=== PATIENT | male | born 1940 | race Caucasian/White ===

== ENCOUNTER 2016-12-20 20:12 | Emergency (ER) | payer MEDICARE ==
[~2016-12-20] VITALS: Ht 185.4 cm; Wt 138.2 kg
[~2016-12-20 20:12] MED LIST: ASPI-973 PO; CLOP75TA28 PO; FLUO10CA20 PO; FLUO20CA25 PO; FURO40TA4 PO; LISI-610 PO; METO100T3 PO; NITR0.4T6 SL; NORT10CA PO; PANT40TA3 PO; POTA20TA16 PO; SIMV40TA5 PO; SPIR25TA PO; SUCR1TAB30 PO
[2016-12-20 20:18] VITALS: BP 171/140; PULSE 93; RESP 23; O2SAT 96
--- NOTE | 2016-12-20 20:32 | ED.REPORT ---
HPI-Chest Pain 40 and Over Date of Service Dec 20, 2016 ED Provider: Oli Alexander DO The patient is a 76 year old male with a medical history including CAD, atrial fibrillation, hypertension, GI bleed, peripheral vascular disease, and CHF s/p cardiac stenting who presents to the ED via EMS with intermittent left-sided chest pain onset five days ago, worsening 45 minutes prior to arrival. 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 The patient denies nausea, shortness of breath, or other symptoms. EMS found the patient with a BP of 171/140 and otherwise normal vital signs. He was given 324mg ASA en route. The patient was supposed to have a lower extremity vascular surgery multiple months ago but cancelled this. Nursing Notes Stated Complaint: CHEST PAIN Chief Complaint: Chest Pain Nursing Notes Reviewed: Yes Allergies: Coded Allergies: morphine (Verified Allergy, Unknown, Hallucinations, 04/25/16) Scheduled Aspirin (Aspirin) 81 Mg Tablet 81 MG PO BID Clopidogrel (Clopidogrel) 75 Mg Tablet 75 MG PO HS Fluoxetine (Fluoxetine) 10 Mg Capsule 10 MG PO DAILY take with 20mg capsule to equal total dose 30mg Fluoxetine (Fluoxetine) 20 Mg Capsule 20 MG PO DAILY take with 10mg capsule to equal 30mg total dose Furosemide (Furosemide) 40 Mg Tablet 40 MG PO BID Lisinopril (Zestril) 10 Mg Tablet 10 MG PO DAILY Metoprolol Tartrate (Metoprolol Tartrate) 100 Mg Tablet 100 MG PO BID Nortriptyline (Nortriptyline) 10 Mg Capsule 10 MG PO HS Pantoprazole DR (Pantoprazole DR) 40 Mg Tablet.dr 40 MG PO BID Potassium Chloride (Potassium Chloride) 20 Meq Tab.er.prt 40 MEQ PO DAILYWM Simvastatin (Simvastatin) 40 Mg Tablet 40 MG PO HS Spironolactone (Aldactone) 25 Mg Tablet 12.5 MG PO DAILY Sucralfate (Carafate) 1 Gm Tablet 1,000 MG PO ACHS Scheduled PRN Nitroglycerin SL (Nitroglycerin SL) 0.4 Mg Tab.subl 0.4 MG SL prn PRN PRN For Chest Pain 1 TAB UNDER TONGUE FOR CHEST PAIN, MAY REPEAT EVERY 5 MINUTES UP TO 3 TABS, IF CHEST PAIN UNRELIEVED CALL 911 General Time Seen by MD: 20:20 Chief Complaint Chest pain Hx Obtained From: Patient Arrived By: Ambulance Sudden in Onset?: Yes Onset Occurred: 5 days ago Symptom Duration: Intermittent Location: : Chest left Quality: Dull, Painful, Sharp, Stabbing Severity: Current: Moderate Severity: Maximum: Moderate Pertinent Negative: Relieved by nothing Context Related History: Reports: Acute coronary syndrome, Arrhythmia, Congestive heart failure, Hypertension Recent Healthcare: No recent doctor visit Past Medical History Past Medical History Coronary artery disease. Atrial fibrillation with rapid ventricular rate. Labile hypertension. Hyperlipidemia. Morbid obesity. Chronic back pain - spinal stenosis. History of prostate cancer s/p brachytherapy Gouty arthritis. Impaired glucose tolerance. Hx of GI bleed CHF Past Surgical History Back surgery Prostate surgery Lumbar spinal fusion, unsure what level. Angioplasty to the right coronary artery with two drug-eluting stents, 3 x 18 mm Xience stent in the distal right coronary artery and a 4 x 18 mm stent in the mid right coronary artery. Family History -Mother: of throat cancer and COPD at 65 -Father: of bladder cancer at 54 -Brother: of heart failure at 65 Smoking History Never Smoker Social History Alcohol Use: In recovery Drug Use: Denies drug use Other Social History: Good social support, , Local resident Ambulatory Status Walker Review of Systems Review of Systems Note: + Pallor, right foot injury Constitutional: Denies: Fever Respiratory: Denies: Non-productive cough, Shortness of breath Cardiovascular: Reports: Chest pain GI: Denies: Diarrhea, Vomiting Complete sys rev & neg: except as marked. Ears / Nose / Throat: Reports: Hearing loss right Physical Exam Initial Vital Signs Vital Signs (First) Date Time Temp Pulse Resp B/P Pulse Ox O2 Delivery O2 Flow Rate FiO2 12/20/16 20:18 36.6 93 23 171/140 96 Room Air Initial VS: Reviewed Head / Eyes: Atraumatic, Normocephalic Neck: Supple, Full range of motion Skin: Warm, Dry, No cyanosis Neurologic: Alert, Oriented, Nonfocal Psychiatric: Mood/affect normal, Behavior normal, Normal thought content General/Constitutional: Awake, Alert Respiratory / Chest: Breath sounds = bilat, No respiratory distress, No chest tenderness Rales / Rhonchi: Positive: Rales bilateral bases Cardiovascular: Regular rhythm, Heart sounds NL Heart Rate / Rhythm: Positive: Irreg irregular rhythm Abdomen: Soft, Non-tender ENT: Airway patent, Mucous membranes moist Right Ear / Mastoid: Positive: Tympanic memb perforated Left Ear / Mastoid: Positive: Ext canal cerumen impact Ankle / Foot: No deformity Ulceration over base of right fifth metatarsal. Large superficial skin avulsion spanning right first digit tip to first metatarsal head which has good granulation tissue without evidence of streaking, drainage, fluctuance, or erythema. Interpretation & Diagnostics Lab Results Interpretation Result Diagram: 12/20/16204912/20/162049 Test 12/20/16 20:50 12/20/16 23:20 White Blood Count 8.8th/mm3 (3.8-10.1) Red Blood Count 5.60mil/mm3 (4.40-5.80) Hemoglobin 14.9g/dL (13.8-17.2) Hematocrit 46.8% (41.0-50.0) Mean Corpuscular Volume 83.6fL (81-100) Mean Corpuscular Hemoglobin 26.6pg (27.0-35.0) Mean Corpuscular Hemoglobin Concent 31.8% (32.0-37.0) Red Cell Distribution Width 21.1% (12.3-15.4) Platelet Count 247bil/L (150-400) Neutrophils (%) (Auto) 63.1% (40-74) Lymphocytes (%) (Auto) 20.9% (14-46) Monocytes (%) (Auto) 12.9% (4-12) Eosinophils (%) (Auto) 2.3% (0-5) Basophils (%) (Auto) 0.6% (0-3) Prothrombin Time 11.0sec (8.1-12.5) Prothromb Time International Ratio 1.03ratio Sodium Level 136mEq/L (134-144) Potassium Level 4.3mEq/L (3.5-5.2) Chloride Level 97mEq/L (97-108) Carbon Dioxide Level 24mmol/L (18-29) Blood Urea Nitrogen 11mg/dL (8-27) Creatinine 0.91mg/dL (0.76-1.27) Estimat Glomerular Filtration Rate 86mL/min (>59) Glucose Level 143mg/dL (60-99) Calcium Level 9.1mg/dL (8.5-10.1) Magnesium Level 1.9mg/dL (1.6-2.6) Total Bilirubin 0.7mg/dL (0.0-1.2) Aspartate Amino Transf (AST/SGOT) 37U/L (0-50) Alanine Aminotransferase (ALT/SGPT) 17U/L (0-44) Alkaline Phosphatase 104U/L (25-160) Total Protein 7.1g/dL (6.4-8.4) Albumin 3.5g/dL (3.4-5.0) Hold Knutson Top Tube Received (Received) Troponin T 0.010ug/L (0.0-0.011) ECG Interpretation ECG Interpretation: Atrial fibrillation rate 94 RBBB Rate increased from previous dated 04/25/16 Inverted T-waves in lead III, unchanged from previous Time: 20:23 Interpreted by: ED physician X-Ray Chest Interpretation Chest Xray Interpretation: IMPRESSION: Acute disease is not seen in the portable chest. Dictated by: Festus Magana M.D. on 12/20/2016 at 20:33 View: Portable, 1 view Interpretation / Wet Read by: Interpret - Radiologist Re-Eval/Medical Decision Med Decision/Clinical Course 76-year-old male with multiple medical comorbidities including chronic atrial fibrillation not on Coumadin, CHF, peripheral vascular disease, coronary artery disease status post stenting on Plavix, and poor medical compliance presents with intermittent chest pain at rest that started around 6 PM this evening. He has no accompanying shortness of breath, diaphoresis, pain in his jaw or his hand. Patient states he was hospitalized earlier this year for 60 days and does not want to be back in the hospital. He has his discharge paperwork from several months ago present with him as well as the prescriptions that he was sent home with at that time which she has not filled. He does not have a clear understanding of which medications he is taking and neither does his . Approximately one week ago the patient was mowing his lawn and got his foot cut by the lawnmower blade. His is been soaking in hydrogen peroxide and putting antibiotic ointment on it, but they have not seen for this. He does not have any fevers or chills, he does not have any streaking up his leg. The wound appears clean and there are no signs of secondary infection, however it is relatively large and he does have a history of peripheral vascular disease. I advised that they need to use wet to dry dressing changes and showed them how to do this. I also gave them a referral to the wound care center which I believe he would greatly benefit from. He is also concerned about decreased hearing in his right ear as his cleaned out his ear wax and since then he has had decreased hearing. She is concerned she may have perforated eardrum, and on exam this is confirmed. I advised them to follow up with her PCP and that this may take several months to heal. In the ER we ruled out acute coronary syndrome with serial troponins and EKG showing atrial fibrillation and T-wave inversion in lead III which is unchanged from previous. I do feel strongly that he needs a cardiac stress test to definitively evaluate his heart I advised him to continue his current medications and follow up early next week with Dr. King. I consider hospitalization given his poor medical compliance to try to get him on the right track and evaluate his heart further inpatient but the patient refused, expressing a strong desire not to be in the hospital again. I discussed the importance of following up with his primary care provider and caring for his current medical problems. Patient and his are agreeable. They will return if his symptoms worsen or if he develops new symptoms. Source of Hx: Old records Time of Eval: 22:57 Patient Status: Condition improved Re-Evaluation/Progress Note: Discussed with patient lab and ECG results with plan for repeat labs. He agrees with plan for care and all questions were addressed. Time of Eval: 00:13 Patient Status: Condition improved Re-Evaluation/Progress Note: Discussed with patient x-ray and lab results, diagnosis, and plan for discharge. Follow-up and return to the ER instructions given. Patient agrees with plan for care and all questions were addressed. Counseled Regarding: Diagnosis, Lab results, Need for follow-up, When/why to return to ED Discharge & Departure Primary Impression: Chest pain Chest pain type: unspecified Qualified Code: R07.9 - Chest pain, unspecified Additional Impressions: Open wound of right foot Encounter type: initial encounter Qualified Code: S91.301A - Unspecified open wound, right foot, initial encounter Peripheral vascular disease Atrial fibrillation Atrial fibrillation type: chronic Qualified Code: I48.2 - Chronic atrial fibrillation Hypertension Hypertension type: essential hypertension Qualified Code: I10 - Essential ( primary) hypertension Tympanic membrane perforation Laterality: right Qualified Code: H72.91 - Unspecified perforation of tympanic membrane, right ear Ruled Out: Acute coronary syndrome Disposition: Home Discharge Condition All VS Reviewed: Yes Condition: Improved Patient Instructions: Chest Pain (ED) Additional Instructions: Thank you for entrusting us with your care. We did not see any evidence of heart attack based off of your EKG and blood work. You do however need to have a stress test to completely rule out heart problems leading to chest pain. Call your primary care provider on Thursday for a follow-up appointment. Speak with him about having a stress test. Also call the wound clinic to follow-up with your foot wound. Until then, apply wet to dry dressings as we demonstrated here. I do not see any evidence of infection based off of the exam today. Stop applying hydrogen peroxide to the wound as this will slow healing. Your right tympanic membrane is perforated. It may heal on its own, he should have this rechecked by your primary care provider. Please continue your home blood pressure medications as prescribed. You should also discuss potentially taking a blood thinner due to your vascular disease and your atrial fibrillation. Return to the ER with any new or worsening symptoms. Referrals: Sneha King MD (PCP) Scribe Attestation Portions of this note were transcribed by Cortney Anthony. I, Dr. Alexander, personally performed the history, physical exam, and medical decision-making; I reviewed and confirmed the accuracy of the information in the transcribed note. Signed by: Luis Eduardo Lang, 12/21/2016, 00:45 copies to: Sneha King MD, Gary R DO Dec 20, 2016 20:32 CORTNEY ANTHONY Dec 20, 2016 21:00
--- NOTE | 2016-12-20 20:36 | DRSVH ---
PROCEDURE: X-RAY CHEST ONE VIEW, PORTABLE ([id number]) INDICATIONS: CP TECHNIQUE: One view of the chest was acquired. COMPARISON: Merged With [facility], CR, XR CHEST 2VW, 05/01/2016, 14:30. FINDINGS: Surgical changes and devices: None. Lungs and pleura: There is chronic elevation of the right hemidiaphragm. No pleural effusions or pneu mothorax. Lungs are clear of acute infiltrates. There is some subsegmental atelectasis at the right lung base.. Mediastinum: Mediastinal contours appear normal. Heart size is normal. Bones and chest wall: No suspicious bony lesions. Overlying soft tissues appear unremarkable. IMPRESSION: Acute disease is not seen in the portable chest. Dictated by: Festus Magana M.D. on 12/20/2016 at 20:33 Approved by: Festus Magana M.D. on 12/20/2016 at 20:34
[2016-12-20 20:59] LABS: BASOPHILS % (AUTO) 0.6 % (0-3); EOSINOPHILS % (AUTO) 2.3 % (0-5); MONOCYTES % (AUTO) 12.9 % (4-12); Mean Corpuscular Hemoglobin 26.6 pg (27.0-35.0); Mean Corpuscular Volume 83.6 fL (81-100); NEUTROPHILS % (AUTO) 63.1 % (40-74); Platelet Count 247 bil/L (150-400)
[2016-12-20 21:07] VITALS: BP 162/79; PULSE 99; RESP 30; O2SAT 96
[2016-12-20 21:24] LABS: TROPONIN T 0.01 ug/L (0.0-0.011)
[2016-12-20 21:36] LABS: Magnesium 1.9 mg/dL (1.6-2.6)
[2016-12-20 22:03] LABS: INR 1.03 ratio
[2016-12-20 23:15] VITALS: BP 157/106; PULSE 94; RESP 21; O2SAT 96
[2016-12-20] MEDS ORDERED: Ketorolac 15 mg/mL Inj IVPUSH ONE (23:25)
== END 2016-12-21 00:36 | disposition home or self-care (01) ==
LOC: EDBD 20:12 → SED 20:12
DX: R07.9 Chest pain, unspecified (principal); S91.301A Unspecified open wound, right foot, initial encounter; W28.XXXA Contact with powered lawn mower, initial encounter; Y93.89 Activity, other specified; Y92.89 Other specified places as the place of occurrence of the external cause; Y99.8 Other external cause status; I11.0 Hypertensive heart disease with heart failure; I50.9 Heart failure, unspecified; I25.10 Atherosclerotic heart disease of native coronary artery without angina pectoris; I48.2 Chronic atrial fibrillation; I73.9 Peripheral vascular disease, unspecified; H72.91 Unspecified perforation of tympanic membrane, right ear; E78.5 Hyperlipidemia, unspecified; Z95.5 Presence of coronary angioplasty implant and graft; Z79.82 Long term (current) use of aspirin; Z88.5 Allergy status to narcotic agent
CPT/HCPCS: 36415; 71010; 80053; 82948; 83735; 84484; 85025; 85610; 93005; 96374; 99285; J1885